=== PATIENT | male | born 1950 | race Caucasian/White ===

== ENCOUNTER → 2016-06-27 | Outpatient (CLI) | payer MEDICARE, OTHER | LOC: SL 20:30 | PROVIDERS: ATTEND Family Medicine | DX: G47.30 Sleep apnea, unspecified (principal); R53.83 Other fatigue; G25.81 Restless legs syndrome; R06.83 Snoring; I10 Essential (primary) hypertension; E66.01 Morbid (severe) obesity due to excess calories ==

== ENCOUNTER → 2016-07-12 | Outpatient (CLI) | payer OTHER ==
--- NOTE | 2016-07-12 12:38 | CT ---
EXAM DESCRIPTION: Chest CT. CLINICAL HISTORY: Patchy infiltrates seen on prior study. COMPARISON: June 01, 2016. TECHNIQUE: A volumetric CT with IV contrast was acquired and displayed in multiplanar reconstructions. FINDINGS: Mediastinum: Minimal Coronary artery disease noted. Visualized lymph nodes are within normal limits for CT size criteria. No acute aortic abnormality, pericardial effusion, or mediastinal mass. Upper Abdomen: Mild fatty infiltration of the liver. Cholelithiasis. The upper abdominal contents are otherwise unremarkable. Lungs: Pleural surfaces are unremarkable. There is no suspicious pulmonary nodularity, consolidation, or interstitial thickening. Bones: No suspicious bone lesion is seen. IMPRESSION: The lungs are clear on today's study. Resolution of the inflammatory changes seen within the left lung base when compared to prior. Fatty infiltration the liver. Cholelithiasis noted. Electronically signed by: Raphael Eldridge MD 07/12/2016 12:36
== END ==
LOC: CT 10:06
PROVIDERS: ATTEND Internal Medicine Critical Care Medicine
DX: J70.9 Respiratory conditions due to unspecified external agent (principal); K76.0 Fatty (change of) liver, not elsewhere classified; K80.20 Calculus of gallbladder without cholecystitis without obstruction

== ENCOUNTER → 2017-01-03 | Outpatient (CLI) | payer MEDICARE | END | disposition home or self-care (01) | LOC: LAB.O 10:35 | PROVIDERS: ATTEND Surgery Plastic and Reconstructive Surgery | DX: Z01.810 Encounter for preprocedural cardiovascular examination (principal); Z01.811 Encounter for preprocedural respiratory examination; Z01.812 Encounter for preprocedural laboratory examination ==

== ENCOUNTER → 2017-01-08 | Outpatient (CLI) | payer MEDICARE | END | disposition home or self-care (01) | LOC: GMAB 10:45 | PROVIDERS: ATTEND Family Medicine | DX: Z12.5 Encounter for screening for malignant neoplasm of prostate (principal); E11.9 Type 2 diabetes mellitus without complications | CPT/HCPCS: 84443; G0103 ==

== ENCOUNTER → 2017-02-13 | Outpatient (CLI) | payer OTHER | LOC: GMAB 16:43 | PROVIDERS: ATTEND Family Medicine | DX: L72.3 Sebaceous cyst (principal) ==

== ENCOUNTER 2017-04-25 06:04 | Day surgery (SDC) | payer OTHER ==
--- NOTE | 2017-04-24 09:17 | RAD ---
EXAM DESCRIPTION: Chest,2 Views CLINICAL HISTORY: 66 years, Male, SURG 04/25/17 COMPARISON: June 05, 2016 FINDINGS: Adequate inspiration. Chronic mild elevation right hemidiaphragm. Scattered fibrotic change. Cardiac silhouette normal. Mild apical pleural thickening. IMPRESSION: Stable mild chronic lung change with normal heart size Electronically signed by: Jose M Figueroa MD 04/24/2017 9:16 AM RECREATION PROGRAM SPECIALIST
[2017-04-25] MEDS ORDERED: NEOSTIGMINE METHYLSULFATE 1 MG/ML ML IV ONE (07:00)
[2017-04-25] MEDS ORDERED: ePHEDrine SULF 50 MG/ML ONE (07:00)
[2017-04-25] MEDS ORDERED: ATROPINE SULFATE 0.4 MG/ML 1ML VIAL ONE (07:00)
[2017-04-25] MEDS ORDERED: SODIUM CHLORIDE 0.9% 50 ML VIAL ONE (07:00)
[2017-04-25] MEDS ORDERED: PROPOFOL 200 MG/20 ML VIAL IV ONE (07:00)
[2017-04-25] MEDS ORDERED: fentaNYL CITRATE INJ 50 MCG/ML AMP ONE (11:17)
[2017-04-25] MEDS ORDERED: ROCURONIUM BROMIDE 10 MG/ML VIAL ONE (11:17)
[2017-04-25] MEDS ORDERED: LIDOCAINE 2 % GEL 5 ML TUBE TOP ONE (11:18)
[2017-04-25] MEDS ORDERED: SODIUM CHL 0.9% 100ML MINI-BAG 100 ML IVPB ONE (12:10)
[2017-04-25] MEDS ORDERED: LACTATED RINGERS 1,000 ML ONE (12:11)
[2017-04-25] MEDS ORDERED: ceFAZolin SODIUM 1 GM VIAL ONE (12:11)
[2017-04-25] MEDS ORDERED: MIDAZOLAM INJ 2 MG/2 ML VIAL ONE (12:39)
[2017-04-25] MEDS ORDERED: LIDOCAINE 1% 50 ML VIAL INJ ONE (12:41)
--- NOTE | 2017-04-25 14:33 | OP ---
DATE OF PROCEDURE: 04/25/17 PREOPERATIVE DIAGNOSIS: 1. Tender subcutaneous mass, upper back. 2. Inclusion cyst of the back status post incision and drainage. POSTOPERATIVE DIAGNOSIS: 1. Tender subcutaneous mass, upper back. 2. Inclusion cyst of the back status post incision and drainage. PROCEDURE: 1. Excision of subcutaneous mass, back 2. Excision of inclusion cyst of the back. SURGEON: Helder Pearson MD. CONTRACT TECHNICAL WRITER: None. ANESTHESIA: General endotracheal anesthesia and local infiltration of plain lidocaine 1%. INDICATION: The patient is a 66-year-old male who is status post incision and drainage for an abscessed inclusion cyst on the upper back. Just superior to this is a subcutaneous mass that has also been tender associated with the treatment of the inclusion cyst. He was brought to the Surgical Suite today for excision of both after the risks, benefits and alternatives to the procedure were discussed and accepted. FINDINGS: The cyst was excised intact. The mass superior to the cyst was greater than 4 cm and 1 diameter. It was somewhat adherent to the fascia deeply. No other pathology was identified. PROCEDURE: After general endotracheal anesthesia was obtained in supine position, the patient was flipped to the prone position and positioned properly. At this point, he was prepped and draped in the usual sterile manner. A surgical time-out was taken. He had been given IV Ancef. An elliptical incision was fashioned around the inclusion cyst, first with a marking pen and then with infiltration of anesthesia. The skin was incised with a knife and dissection was carried down through the skin into the subcutaneous tissue and the lesion was excised, all using electrocautery. When this was done, the specimen was sent for pathological evaluation. At this point , again the identified subcutaneous mass was superior to this, so the incision was lengthened approximately 2 cm superiorly and then dissection was carried down through the skin, Bertin's fascia and into the deep subcutaneous tissue. The fatty tissue consistent with a lipoma was dissected free using blunt dissection and electrocautery. When it was completely excised, hemostasis was obtained with electrocautery. The wound was irrigated copiously with saline. At this point, Bertin's fascia was reapproximated with interrupted 3-0 Chromic sutures and the skin was approximated with interrupted 3-0 Nylon vertical mattress sutures. Sterile pressure dressing was applied. The patient was then awakened and take back to the Recovery Room in stable condition. Estimated blood loss was less than 50 mL. All sponge, needle and instrument counts were correct. #[id number] [facility]
[2017-04-25 14:52] VITALS: BP 140/69; TEMP 97.6; O2SAT 100
== END 2017-04-25 15:15 | disposition home or self-care (01) ==
LOC: AMB 06:04
PROVIDERS: ATTEND Surgery
DX: D17.1 Benign lipomatous neoplasm of skin and subcutaneous tissue of trunk (principal); L72.0 Epidermal cyst; I10 Essential (primary) hypertension; E11.9 Type 2 diabetes mellitus without complications; E66.9 Obesity, unspecified; Z85.828 Personal history of other malignant neoplasm of skin; J44.9 Chronic obstructive pulmonary disease, unspecified; Z79.4 Long term (current) use of insulin; Z79.899 Other long term (current) drug therapy
CPT/HCPCS: 00300; 11402; 21931; 36415; 36416; 71020; 80053; 81001; 82948; 85025; 88304; 93005; A4216; J0690; J2250; J2710; J3010; J3490; J7050; J7120

== ENCOUNTER → 2017-12-03 | Outpatient (CLI) | payer OTHER, MEDICARE | LOC: LAB.O 15:50 | PROVIDERS: ATTEND Surgery | DX: L02.212 Cutaneous abscess of back [any part, except buttock and flank] (principal) ==

== ENCOUNTER → 2018-02-20 | Outpatient (CLI) | payer OTHER | LOC: GMAE 14:05 | PROVIDERS: ATTEND Family Medicine | DX: I10 Essential (primary) hypertension (principal); Z12.5 Encounter for screening for malignant neoplasm of prostate | CPT/HCPCS: 84443; G0103 ==

== ENCOUNTER → 2019-03-03 | Outpatient (CLI) | payer MEDICARE, OTHER ==
--- NOTE | 2019-03-03 16:29 | RAD ---
EXAM DESCRIPTION: Knee,Right Complete CLINICAL HISTORY: PAIN IN RIGHT KNEE COMPARISON: None FINDINGS: 3 views of the right knee. The joint spaces are maintained. No significant subchondral sclerosis or cystlike formation is demonstrated within the knee. No acute fractures. Usual enthesophyte formation seen at the patella. No periosteal reaction. No large joint effusion. IMPRESSION: No acute osseous pathology. No advanced osteoarthritis. MRI may be of benefit. Electronically signed by: Juan Ayon MD 03/03/2019 4:28 PM CDT
--- NOTE | 2019-03-03 16:31 | RAD ---
EXAM DESCRIPTION: Pelvis, 2 radiographs CLINICAL HISTORY: Right hip pain FINDINGS/ IMPRESSION: Mild osteoarthritis bilateral hips. No fracture. 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
== END ==
LOC: RAD 07:48
PROVIDERS: ATTEND Orthopaedic Surgery
DX: M16.0 Bilateral primary osteoarthritis of hip (principal); M47.898 Other spondylosis, sacral and sacrococcygeal region; M77.9 Enthesopathy, unspecified; M25.561 Pain in right knee

== ENCOUNTER 2019-06-14 20:16 | Emergency (ER) | payer OTHER ==
[2019-06-14 20:31] VITALS: TEMP 98.9
--- NOTE | 2019-06-14 20:34 | ED.PDOC ---
History of Present Illness - General Chief Complaint: Abdominal Pain Time Seen by Provider: 06/14/19 20:25 Information Source: patient, RN notes reviewed, Vital Signs reviewed, family Exam Limitations: no limitations Additional Information: this is a 69-year-old gentleman who presents to the emergency department with history of hypertension as well as diabetes. He states that at 7 PM he had a sneezing fit and hurt his lower abdomen. He states that he has had previous ventral hernia repair 2 the last being about 13 years ago. Said he has had some soreness of his abdomen secondary to having a nonproductive cough for the last week and a half. He was seen by his PCP and thought to have a head cold only. He denies having any fever or chills recently. He is not taking any pain medication since the pain began. He did place an abdominal binder to splint the pain. He denies other abdominal surgeries. Patient denies any nausea or vomiting. No chest pain reported at present. Review of Systems - Review of Systems Constitutional: States: no symptoms reported EENTM: States: no symptoms reported Respiratory: States: cough. Denies: short of breath, stridor, wheezing Cardiology: States: edema - lower extremities chronically, told to wear radha hose Gastrointestinal/Abdominal: States: abdominal pain. Denies: constipation, diarrhea, nausea, vomiting Genitourinary: States: no symptoms reported Musculoskeletal: States: no symptoms reported Skin: States: no symptoms reported Neurological: States: no symptoms reported Hematologic/Lymphatic: States: no symptoms reported All other Systems: Reviewed and Negative Past Medical History (General) - Patient Medical History Hx Seizures: No Hx Stroke: No Hx Asthma: Yes Hx of COPD: No Hx Cardiac Disorders: No Hx Congestive Heart Failure: No Hx Pacemaker: No Hx Hypertension: Yes Hx Diabetes: Yes - FSBS 75 Hx MRSA: No - Vaccination History Hx Tetanus, Diphtheria Vaccination: No Hx Influenza Vaccination: No Hx Pneumococcal Vaccination: No - Social History Hx Tobacco Use: No Hx Alcohol Use: No Hx Substance Use: No Hx Substance Use Treatment: No Hx Depression: No Hx Physical Abuse: No Hx Emotional Abuse: No Family Medical History - Family History Mother Living Status: Hx Family Asthma: Yes Hx Family Congestive Heart Failure: Yes Hx Family Hypertension: Yes Hx Family Stroke: No Hx Cardiac Disease: No Hx Family Diabetes: Yes Hx Family Cancer: Yes Physical Exam - Physical Exam General Appearance: Alert, Obvious distress, Other - pain with movement and valsalva Eyes, Ears, Nose, Throat Exam: PERRL/EOMI, normal ENT inspection, TMs normal Neck: non-tender, full range of motion, supple, normal inspection Respiratory: chest non-tender, no respiratory distress, no accessory muscle use, rhonchi - right lower lobe mostly, Cardiovascular/Chest: normal peripheral pulses, regular rate, rhythm, other - 1 + edema bilaterally and symmetrically of the LE's. Peripheral Pulses: No deficit Gastrointestinal/Abdominal: normal bowel sounds, soft, no organomegaly, no pulsatile mass, tenderness - left of midline, superior to umbiliacus, no herniation, no skin changes, no ecchymosis Rectal Exam: deferred Back Exam: normal inspection, no CVA tenderness, no vertebral tenderness Extremity: normal range of motion, non-tender, normal inspection, no pedal edema, no calf tenderness Neurologic: manager loan II-XII nml as tested, no motor/sensory deficits, alert, normal mood/affect, oriented x 3 Skin Exam: normal color, warm/dry Lymphatic: no adenopathy Progress - Progress Progress: 06/14/19 20:48 MDM: Muscular spasm, muscular strain,rectus strain, AAA, gastritis, pneumonia, rhonchi. Patient will have IV placed and we will give pain medications as necessary. We will go ahead and obtain some laboratory studies as well as a chest x-ray and abdominal CT 06/14/19 22:06 Pt reports pain is improved. 4/10 now. Declines any more pain meds at present. - Results/Orders Results/Orders: Laboratory Tests 06/14/19 06/14/19 20:46 20:46 WBC 9.9 RBC 4.37 L Hgb 13.4 L Hct 39.1 L MCV 89.5 MCH 30.7 MCHC 34.3 RDW 14.2 Plt Count 278 MPV 8.5 Absolute Neuts (auto) 6.00 Absolute Lymphs (auto) 2.80 Absolute Monos (auto) 0.80 Absolute Eos (auto) 0.30 Absolute Basos (auto) 0.10 Neutrophils % 60.3 Lymphocytes % 28.0 Monocytes % 7.8 Eosinophils % 3.1 Basophils % 0.8 Sodium 138 Potassium 3.6 Chloride 101 Carbon Dioxide 27 Anion Gap 13.6 BUN 24 H Creatinine 0.85 BUN/Creatinine Ratio 28.2 H Random Glucose 223 H Serum Osmolality 286.6 Calcium 8.8 Total Bilirubin 0.9 AST 42 ALT 25 Alkaline Phosphatase 75 Serum Total Protein 7.4 Albumin 3.9 Globulin 3.5 Albumin/Globulin Ratio 1.1 COMPARISON: CT chest and upper abdomen from 07/12/2016 FINDINGS: Abdomen: There has been development of clustered tree-in-bud nodular opacities in the right lung base likely representing a mild infectious bronchiolitis with aspiration also possible. The lung bases are otherwise clear. Gallstone is again noted in the gallbladder. There are no renal or ureteral stones and no hydronephrosis. Very mild bilateral gynecomastia is noted. Solid abdominal organs are otherwise unremarkable. There is fat stranding in the jejunal small bowel mesentery consistent with sclerosing mesenteritis. There is no abdominal adenopathy. There is no free fluid or free air within the abdomen. The abdominal portion of the GI tract is unremarkable. Pelvis: There is diverticulosis. The prostate is enlarg ed, please correlate with physical exam and PSA levels. There is no free fluid in the pelvis. The pelvic portion of the GI tract including the appendix is otherwise unremarkable. There is no pelvic adenopathy. Degenerative changes are noted in the spine. IMPRESSION: 1. Cholelithiasis. 2. Findings consistent with a likely mild infectious bronchiolitis in the right lung base. 3. Diverticulosis. 4. Findings consistent with sclerosing mesenteritis. 5. Prostate enlargement. Electronically signed by: Herbie Jane 06/14/2019 9:53 PM GATE MANAGER IMPRESSION: Minimal patchy right lower lung opacity corresponds to a known area of likely infectious bronchiolitis in the right lung base on CT. Electronically signed by: Herbie Jane 06/14/2019 9:54 PM GATE MANAGER Departure - Departure Clinical Impression: Strain of rectus abdominis muscle, Sclerosing mesenteritis, Cholelithiasis, Acute bronchitis Time of Disposition: 22:59 Disposition: Discharge to Home or Self Care Condition: Good Departure Forms: ED Discharge - Pt. Copy, Patient Portal Self Enrollment Instructions: DI for Abdominal Pain-Adult Referrals: Vamshi Roche MD [Family Provider] - 1-2 Weeks Prescriptions: Acetaminophen W/ Codeine [Tylenol W/ CODEINE #3] 1 ea PO Q6HRS #20 Benzonatate Perles [Tessalon Perles] 100 mg PO Q8HR #30 cap Azithromycin [Zithromax Z-Fei] 250 mg PO DAILY #6 tab Home Medications: Ambulatory Orders Folic [id number]-Yduhqrvq [Folbic 2.5-25-2 mg] 1 tab PO DAILY 06/01/16 Insulin Glargine [Toujeo Solostar] 300 unit SC BEDTIME 04/24/17 Acetaminophen W/ Codeine [Tylenol W/ CODEINE #3] 1 ea PO Q6HRS #20 06/14/19 Atorvastatin Calcium 40 mg PO DAILY 06/14/19 Azithromycin [Zithromax Z-Fei] 250 mg PO DAILY #6 tab 06/14/19 Benzonatate Perles [Tessalon Perles] 100 mg PO Q8HR #30 cap 06/14/19 Losartan Potassium & Hydrochlo [Losartan Potassium/Hydroc 100-25 mg] 1 tab PO DAILY 06/14/19 Additional Instructions: Follow up with Dr. Pearson. Take medications as prescribed. Complete all antibiotics. Take pain medication as needed. Return to the ER if necessary.
[2019-06-14] MEDS ORDERED: MORPHINE SULFATE INJ 10 MG/ML VIAL IV ONE ×2 (20:39→22:12)
[2019-06-14] MEDS ORDERED: ONDANSETRON INJ 4 MG/2 ML VIAL IV ONE (20:39)
[2019-06-14] MEDS ORDERED: SODIUM CHLORIDE 0.9% 1000ML 1,000 ML IVS PRN (20:40)
[2019-06-14 21:03] VITALS: O2SAT 94
--- NOTE | 2019-06-14 21:54 | CT ---
CT abdomen and pelvis with and without contrast on 06/14/2019 CLINICAL INDICATION: Generalized abdominal pain TECHNIQUE: Multiple axial images are obtained throughout the abdomen and pelvis both prior to and following the administration of IV contrast. This exam was performed according to our departmental dose-optimization program, which includes automated exposure control, adjustment of the mA and/or kV according to patient size and/or use of iterative reconstruction technique. Total DLP is 2676.38 mGy*cm. COMPARISON: CT chest and upper abdomen from 07/12/2016 FINDINGS: Abdomen: There has been development of clustered tree-in-bud nodular opacities in the right lung base likely representing a mild infectious bronchiolitis with aspiration also possible. The lung bases are otherwise clear. Gallstone is again noted in the gallbladder. There are no renal or ureteral stones and no hydronephrosis. Very mild bilateral gynecomastia is noted. Solid abdominal organs are otherwise unremarkable. There is fat stranding in the jejunal small bowel mesentery consistent with sclerosing mesenteritis. There is no abdominal adenopathy. There is no free fluid or free air within the abdomen. The abdominal portion of the GI tract is unremarkable. Pelvis: There is diverticulosis. The prostate is enlarged, please correlate with physical exam and PSA levels. There is no free fluid in the pelvis. The pelvic portion of the GI tract including the appendix is otherwise unremarkable. There is no pelvic adenopathy. Degenerative changes are noted in the spine. IMPRESSION: 1. Cholelithiasis. 2. Findings consistent with a likely mild infectious bronchiolitis in the right lung base. 3. Diverticulosis. 4. Findings consistent with sclerosing mesenteritis. 5. Prostate enlargement. Electronically signed by: Herbie Jane 06/14/2019 9:53 PM RUST
--- NOTE | 2019-06-14 21:55 | RAD ---
Chest 2 view on 06/14/2019 CLINICAL INDICATION: Cough COMPARISON: Chest x-ray from 04/24/[address] abdomen and lower chest on 06/14/2019 FINDINGS: Minimal patchy right lower lung opacity corresponds to a known area on CT of likely mild infectious bronchiolitis. Lungs are otherwise clear. Vascular calcification is noted in the aorta. Cardiac, hilar and mediastinal contours are within normal limits. Pulmonary vascularity is within normal limits. IMPRESSION: Minimal patchy right lower lung opacity corresponds to a known area of likely infectious bronchiolitis in the right lung base on CT. Electronically signed by: Herbie Jane 06/14/2019 9:54 PM PROSTHETICS TECHNICIAN
[2019-06-14 22:00] VITALS: BP 154/76
[2019-06-14] MEDS ORDERED: AZITHROMYCIN 250 MG TAB PO ONE (22:11)
== END 2019-06-14 23:14 | disposition home or self-care (01) ==
LOC: ER 20:16
DX: S39.011A Strain of muscle, fascia and tendon of abdomen, initial encounter (principal); K65.4 Sclerosing mesenteritis; K80.20 Calculus of gallbladder without cholecystitis without obstruction; J20.9 Acute bronchitis, unspecified; I10 Essential (primary) hypertension; E11.9 Type 2 diabetes mellitus without complications; X50.9XXA Other and unspecified overexertion or strenuous movements or postures, initial encounter; Y92.9 Unspecified place or not applicable
CPT/HCPCS: 71046; 74178; 80053; 85025; J2270; J2405; J7030; Q0144

== ENCOUNTER 2020-03-26 22:11 | Inpatient (IN) | payer OTHER ==
--- NOTE | 2020-03-26 22:15 | ED.PDOC ---
History of Present Illness - General Time Seen by Provider: 03/26/20 22:12 Source: patient - History of Present Illness Initial Comments: 69 yo male with PMH of HTN, DM2 who presents with cc of shortness of breath. Patient reports he has been ill for the past 2 weeks. Reports primary symptoms of frequent cough productive for clear sputum and dyspnea. Reports symptoms seem to have worsened in the past 24 hours and further worsened this evening - cough and dyspnea have been worse at night typically. Reports moderate dyspnea at rest which worsens quickly with ambulating just short distances around the home. He additionally reports intermittent fevers over the past 2 weeks. Reports T-max of 102 Fahrenheit at home just prior to arrival. He did take 3 tablets of regular strength Tylenol just prior to arrival with improvement of the fever. Denies any chest pain, abdominal pain, nausea/vomiting/diarrhea, leg swelling, sore throat. He does report moderate generalized headache but denies neck stiffness. Reports body aches. Denies any history of IA or blood clots. Patient does take medications for high blood pressure and diabetes. He states his blood pressure has been periodically elevated higher than normal. His PCP has increased his amlodipine from 5 to 10 mg daily with some improvement. Pt reports he was diagnosed with COVID-19 on 03/16/2020. He was given a Rocephin shot and prescribed a 5-day Z-Fei on 03/16 but states he has not been taking any other prescription antibiotics or steroids since then. He has been taking some ipqd-[id number] Mucinex with little relief. PCP is Dr. Saucedo. Allergies/Adverse Reactions: Allergies NO KNOWN ALLERGY Allergy (Verified 06/14/19 20:30) Home Medications: Ambulatory Orders Folic Yvsm-Lcvwojcxsm-Avwuhuko [Folbic 2.5-25-2 mg] 1 tab PO DAILY 06/01/16 Insulin Glargine [Toujeo Solostar] 300 unit SC BEDTIME 04/24/17 Acetaminophen W/ Codeine [Tylenol W/ CODEINE #3] 1 ea PO Q6HRS #20 06/14/19 Atorvastatin Calcium 40 mg PO DAILY 06/14/19 Azithromycin [Zithromax Z-Fei] 250 mg PO DAILY #6 tab 06/14/19 Benzonatate Perles [Tessalon Perles] 100 mg PO Q8HR #30 cap 06/14/19 Losartan Potassium & Hydrochlo [Losartan Potassium/Hydroc 100-25 mg] 1 tab PO DAILY 06/14/19 Review of Systems - Review of Systems Review of Systems: 03/26/20 22:34 as per HPI All other Systems: Reviewed and Negative Past Medical History (General) - Patient Medical History Hx Seizures: No Hx Stroke: No Hx Dementia: No Hx Asthma: Yes Hx of COPD: No Hx Cardiac Disorders: No Hx Congestive Heart Failure: No Hx Pacemaker: No Hx Hypertension: Yes Hx Thyroid Disease: No Hx Diabetes: Yes - FSBS 76 Hx Gastroesophageal Reflux: No Hx Renal Disease: No Hx Cancer: No Hx of HIV: No Hx Hepatitis C: No Hx MRSA: No - Vaccination History Hx Tetanus, Diphtheria Vaccination: No Hx Influenza Vaccination: No Hx Pneumococcal Vaccination: No - Social History Hx Tobacco Use: No Hx Alcohol Use: No Hx Substance Use: No Hx Substance Use Treatment: No Hx Depression: No Hx Physical Abuse: No Hx Emotional Abuse: No Family Medical History - Family History Mother Living Status: Hx Family Asthma: Yes Hx Family Congestive Heart Failure: Yes Hx Family Hypertension: Yes Hx Family Stroke: No Hx Cardiac Disease: No Hx Family Diabetes: Yes Hx Family Cancer: Yes Physical Exam - Physical Exam General Appearance: Alert, Anxious, Obese, Restless Eye Exam: bilateral normal Ears, Nose, Throat: hearing grossly normal, normal ENT inspection, normal pharynx Neck: non-tender, full range of motion, supple, normal inspection Respiratory: chest non-tender, accessory muscle use, rales - Bibasilar crackles noted without rhonchi or wheezing, good air movement throughout., other - Patient speaking in short sentences, respiratory rate 30, mild accessory muscle use. Cardiovascular/Chest: normal peripheral pulses, no edema, no gallop, no JVD, no murmur, tachycardia Peripheral Pulses: radial,right: 2+, radial,left: 2+ Gastrointestinal/Abdominal: non tender, soft, no organomegaly Back Exam: normal inspection, no CVA tenderness, no vertebral tenderness Extremity: normal range of motion, non-tender, normal inspection, no pedal edema, no calf tenderness, normal capillary refill Neurologic: umbrella tipper II-XII nml as tested, no motor/sensory deficits, alert, normal mood/affect, oriented x 3 Skin Exam: normal color, warm/dry Progress - Progress Progress: 03/26/20 22:35 Acute respiratory distress -Suspect due to COVID-19 disease. Consider also pneumonia, ACS, CHF, COPD, PE, other viral etiologies, flu, strep, other -Obtain stat sepsis and cardiac work-up. Obtain COVID-19 ED panel. Obtain swabs for flu and strep -Patient with borderline hypoxia in the ED90 to 94% on room air, tachypnea and tachycardia present. Afebrile upon arrival. Patient does have bibasilar crackles but otherwise is moving air well without wheezing. -Place nasal cannula supplemental oxygen, will give trial of albuterol nebs in the ED 03/27/20 00:25 -Patient reports moderate improvement in dyspnea following the albuterol nebs. His tachypnea and accessory muscle use is much improved. Hemodynamically remains stable. -Labs reveal WBC 9,800 with 64% segs and 24% lymphs, no bands, lactate 1.6. CRP 15.8, LDH 215, D-dimer 337, trop 0.03, glucose 184, K 3.2 (replenished 40 mEq in ED). Strep testing positive. RP2 remains pending. -Chest x-ray is concerning for bilateral groundglass opacities, worse in the left lower lobe which I am concerned may be developing infiltrate/pneumonia. -Discussed findings with the patient and advised hospital admission for COVID-19 pneumonia, community-acquired pneumonia, acute respiratory distress. Patient is in agreement. Begin treatment in the ED with Rocephin 1 g IV, azithromycin 500 mg IV, Decadron 6 mg IV, Lovenox 40 mg subcu. We will give another dose of duo nebs as well. Blood cultures drawn. -Discussed the patient with Belinda Sosa who accepts to her service. 03/27/20 01:31 -RP2 positive for COVID-19, negative for all others Cheko Dwyer MD Billing #[id number] 03/26/20 22:13 IV Care:Saline Lock per [employer] STAT Isolation:Airborne ONCE 03/26/20 22:14 UA [URINALYSIS] Stat 03/26/20 22:15 EKG STAT Oxygen STAT Pulse Ox, Continuous Monitoring STAT 03/26/20 23:09 RESPIRATORY PANEL 2 Stat 03/27/20 00:21 cefTRIAXone SODIUM [Rocephin] 1 gm Sodium Chl 0.9% 50Ml Min-Bag+ [NS 50ml MINI-BAG+] 50 ml IVPB ONCE 03/27/20 00:22 Azithromycin IV [Zithromax IV] 500 mg Sodium Chloride 0.9% 250Ml [NS 250ml] 250 ml IVPB ONCE 03/27/20 00:25 BLOOD CULTURE Stat 03/27/20 22:15 Oxygen STAT Pulse Ox, Continuous Monitoring STAT 03/28/20 22:15 Pulse Ox, Continuous Monitoring STAT Laboratory Results - last 24 hr 03/26/20 03/26/20 03/26/20 23:09 23:09 23:09 WBC 9.8 RBC 3.79 L Hgb 10.5 L Hct 31.4 L MCV 82.9 MCH 27.6 MCHC 33.3 RDW 14.9 H Plt Count 266 MPV 8.6 Absolute Neuts (auto) 6.20 Absolute Lymphs (auto) 2.40 Absolute Monos (auto) 1.10 H Absolute Eos (auto) 0.10 Absolute Basos (auto) 0.00 Neutrophils % 63.5 Lymphocytes % 24.4 Monocytes % 10.9 H Eosinophils % 1.0 Basophils % 0.2 PTT (SP) 26.9 D-Dimer, Quantitative 337.0 Sodium 136 Potassium 3.2 L Chloride 102 Carbon Dioxide 22 Anion Gap 15.2 BUN 23 H Creatinine 1.06 BUN/Creatinine Ratio 21.7 H Random Glucose 184 H Serum Osmolality 280.4 Lactic Acid Calcium 8.0 L Magnesium 2.0 Total Bilirubin 1.1 H AST 48 H ALT 34 Alkaline Phosphatase 67 LD Total 215 H Creatine Kinase 84 Troponin I C-Reactive Protein 15.8 H* B-Natriuretic Peptide 43.0 Serum Total Protein 7.2 Albumin 3.3 Globulin 3.9 H Albumin/Globulin Ratio 0.8 L Group A Strep Rapid 03/26/20 03/26/20 03/26/20 23:09 23:09 23:09 WBC RBC Hgb Hct MCV MCH MCHC RDW Plt Count MPV Absolute Neuts (auto) Absolute Lymphs (auto) Absolute Monos (auto) Absolute Eos (auto) Absolute Basos (auto) Neutrophils % Lymphocytes % Monocytes % Eosinophils % Basophils % PTT (SP) D-Dimer, Quantitative Sodium Potassium Chloride Carbon Dioxide Anion Gap BUN Creatinine BUN/Creatinine Ratio Random Glucose Serum Osmolality Lactic Acid 1.6 Calcium Magnesium Total Bilirubin AST ALT Alkaline Phosphatase LD Total Creatine Kinase Troponin I 0.03 C-Reactive Protein B-Natriuretic Peptide Serum Total Protein Albumin Globulin Albumin/Globulin Ratio Group A Strep Rapid Positive H - EKG/XRAY/CT EKG: Sinus, Tachy - Heart rate 100, no ST elevations or Q waves present, axis normal, intervals normal, compared to 04/25/2017 EKG tachycardia appears new but otherwise unchanged XRAY: chest - Bilateral groundglass opacities noted in the lower lung mcmanus, left greater than right. Suspicious for COVID-19 pneumonia. He also developed consolidating infiltrate in the left lower lung field per my read Departure - Departure Clinical Impression: Pneumonia due to COVID-19 virus, Respiratory distress, Strep pharyngitis Community acquired pneumonia Qualifiers: Laterality: unspecified laterality Qualified Code(s): J18.9 - Pneumonia, unspecified organism Time of Disposition: 00:30 Disposition: Admit Patient Condition: Fair Diet: diabetic diet Referrals: TAVIA SAUCEDO MD [Primary Care Provider] - 1-2 Weeks Home Medications: Ambulatory Orders Folic Hmtc-Xydmcqpmeg-Snagodmj [Folbic 2.5-25-2 mg] 1 tab PO DAILY 06/01/16 Insulin Glargine [Toujeo Solostar] 300 unit SC BEDTIME 04/24/17 Acetaminophen W/ Codeine [Tylenol W/ CODEINE #3] 1 ea PO Q6HRS #20 06/14/19 Atorvastatin Calcium 40 mg PO DAILY 06/14/19 Azithromycin [Zithromax Z-Fei] 250 mg PO DAILY #6 tab 06/14/19 Benzonatate Perles [Tessalon Perles] 100 mg PO Q8HR #30 cap 06/14/19 Losartan Potassium & Hydrochlo [Losartan Potassium/Hydroc 100-25 mg] 1 tab PO D AILY 06/14/19 Critical Care Note - Critical Care Note Total Time (mins): 30 Comments: Critical Care Time: Upon my evaluation, this patient had a high probability of life-threatening deterioration due to COVID-19 pneumonia, acute respiratory distress, which required my direct attention, intervention, and management. I have provided 30 minutes of critical care time exclusive of separately billable procedures. My time included: direct patient care, review of labs and radiology, obtaining history from and counseling the patient, discussion with consultants and other medical personnel, documentation, and monitoring for potential decompensation. Decision To Admit - Decistion To Admit Decision to Admit Reason: Admit from ER Decision to Admit Date: 03/27/20 Decision to Admit Time: 00:30
[2020-03-26] MEDS ORDERED: ALBUTEROL SULFATE 2.5 MG/3 ML VIAL NEB ONE (22:29)
--- NOTE | 2020-03-26 22:53 | RAD ---
EXAM DESCRIPTION: Chest,1 View 03/26/2020 10:50 PM CDT CLINICAL HISTORY: 69 years, Male, COVID-19+, dyspnea COMPARISON: 06/14/2019 FINDINGS: Single view of the chest was obtained portable. Prior films were compared. The heart is not enlarged. There is minimal intimal aortic arch calcification and tortuosity. The cardiomediastinal silhouette demonstrate to be unremarkable. There is a small focal area of airspace opacity within the lateral left lower lung zone as well as minimal linear densities within the medial right lung base, possibility of multilobar pneumonia and/or early changes of Covid 19 pneumonia could be of consideration. The rest of the soft tissue and bony structures demonstrate to be unremarkable. IMPRESSION: MINIMAL GROUNDGLASS/OPACITY SUBPLEURAL LATERAL LEFT LOWER LUNG AND MEDIAL RIGHT LOWER LUNG ZONES, POSSIBILITY OF MULTILOBAR PNEUMONIA IN/OR COVID 19 PNEUMONIA COULD BE OF CONSIDERATION, CORRELATE WITH LAB VALUES. Electronically signed by: Nilson Carmona MD 03/26/2020 10:52 PM CDT
[2020-03-27] MEDS ORDERED: IPRATROPIUM/ALBUTEROL 3 ML VIAL NEB ONE (00:14)
[2020-03-27] MEDS ORDERED: POTASSIUM CHLORIDE 20 MEQ TAB PO ONE (00:14)
[2020-03-27] MEDS ORDERED: cefTRIAXone SODIUM 1 GM in SODIUM CHL 0.9% 50ML MIN-BAG+ 50 ML IVPB ONE (00:21)
[2020-03-27] MEDS ORDERED: DEXAMETHASONE INJ 4 MG/ML VIAL IV ONE (00:21)
[2020-03-27] MEDS ORDERED: AZITHROMYCIN IV 500 MG in SODIUM CHLORIDE 0.9% 250ML 250 ML IVPB ONE (00:22)
[2020-03-27] MEDS ORDERED: ENOXAPARIN SODIUM 40 MG/0.4 ML SYG SUBCU ONE (00:24)
[2020-03-27] MEDS ORDERED: DEXAMETHASONE INJ 10 MG/ML VIAL ONE (01:12)
--- NOTE | 2020-03-27 01:34 | HP ---
SUPERVISING PHYSICIAN: Joey Cox MD CHIEF COMPLAINT: Upper respiratory and Covid symptoms. HISTORY OF PRESENT ILLNESS: This is a 69 year-old male patient who has a history of hypertension and diabetes mellitus and asthma. He presented to the Emergency Room with shortness of breath. He has been ill for approximately 2 weeks. In the previous 24 hours he had gotten a lot worse. His dyspnea was much worse with exertion and he has had fevers up to 102 as well as over the the last several days. He has also had some issues with his blood pressure and his blood pressure had been elevated and his primary care physician increased his amlodipine from 5 mg daily to 10 mg daily. He was diagnosed with Covid-19 on 03/16/20. His daughter was actually diagnosed the day before but has been having some symptoms since March 12. He has felt poorly during that whole time and got to the point where he came to the Emergency Room last night due to these symptoms. In the Emergency Room, his initial vital signs showed a temperature of 98 with a heart rate of 115, blood pressure 119/71, respiratory rate 24, oxygen saturation 94% on 2 liters nasal cannula. His respiratory rate had dropped to 28 respirations per minute. His lab studies showed a WBC of 9.8 with a hemoglobin of 10.5 and hematocrit 31.4. PTT was 26.9 with a D-dimer of 337. His sodium was 136, potassium 3.2, chloride 102, carbon dioxide 33, BUN 23, creatinine 1.06. Glucose 184, calcium 8, magnesium 2, bilirubin 1.1 with an AST of 48. ALT of 34, alkaline phosphatase 66, LD 215, troponin 0.03 with a C- reactive protein of 15.8, BNP of 43. Group A strep was positive. Blood cultures were drawn, respiratory panel showed he was positive for Covid-19. Chest x-ray showed minimal ground glass opacities, subpleural lateral left lower lung and medial right lower lung zones, possibly a multilobar pneumonia and/or Covid-19 pneumonia could be a consideration. He was given some fluids in the Emergency Room as well as some Lovenox. He was given Decadron IV, started on azithromycin and Rocephin and he was admitted to the hospital in stable condition. PAST MEDICAL HISTORY: 1. Chronic obstructive pulmonary disease. 2. Hyperlipidemia. 3. Hypertension. 4. Obesity. 5. Type 2 diabetes mellitus, no longer on medications. PAST SURGICAL HISTORY: 1. Hernia surgery times 2. 2. Knee surgery times 2. . ALLERGIES: NO KNOWN DRUG ALLERGIES. FAMILY HISTORY: SOCIAL HISTORY: He lives in [place], he is . He denies tobacco, ETOH or illicit drug use. OUTPATIENT MEDICATIONS: Per the EMR and awaiting verification. REVIEW OF SYSTEMS: GENERAL: Positive for fever, fatigue, negative for weight changes. HEENT: Positive for sore throat, negative for vision changes or hearing problems. RESPIRATORY: Positive for coughing, wheezing, shortness of breath CARDIAC: Negative for chest pain, palpitations, tachycardia. GI: Negative for nausea, vomiting, diarrhea or constipation. GENITOURINARY: Negative for hematuria, dysuria, polyuria. SKIN: Negative for lesions or rashes. NEUROLOGICAL: Positive for headaches and weakness, negative for seizures. PHYSICAL EXAMINATION: VITAL SIGNS: Temperature 97.5, heart rate 88, blood pressure 154/88, respiratory rate 22, oxygen saturation 94% on 2 liters nasal cannula. GENERAL: This is a 69 year-old obese male who is lying in his hospital bed. He looks to be in moderate respiratory distress. HEENT: Normocephalic and atraumatic. Pupils are equal and reactive. Oropharynx is clear. NECK: Supple without mass. RESPIRATORY: Diminished at the bases with some scattered rhonchi and a few expiratory wheezes. The patient does have to speak in 2 to 3-word phrases due to his shortness of breath. He is tachypneic and there is some accessory muscle use. CARDIAC: Regular rate and rhythm, at times he is tachycardiac. GI: Abdomen is soft, nondistended, non-tender. Bowel sounds are positive. BACK: Exam deferred. EXTREMITIES: No cyanosis, clubbing, or edema/ NEUROLOGIC: He is awake, alert, and oriented x3. Cranial nerves II through XII are grossly intact. SKIN: [place], warm and dry. FOLLOWUP LABORATORY: WBC of 6,100 with hemoglobin 10.3, hematocrit 30.6. He does have a left shift on his differential. Fibrinogen is 718, D-dimer is 367. Sodium 138, potassium 3.4, BUN 25, creatinine 1.02, calcium 8.2. C-reactive protein 7.1. LD is 154. All other labs and films have been reviewed via the EMR. ASSESSMENT: 1. Covid-19 pneumonitis. 2. Strep pharyngitis. 3. Asthma with acute exacerbation. 4. Hypertension. 5. DANAE. 6. Obesity. 7. Diabetes mellitus type 2, currently on no medication. PLAN: The patient has been admitted to the hospital. He has been started on the Covid and pneumonia guidelines. We will monitor his lab closely over the next few days. I will get a CT of his chest and he will be on azithromycin, Rocephin, Remdesivir, Decadron and Lovenox. He will be on a PPI for ulcer prophylaxis. He will also have a aggressive pulmonary hygiene. His home medications will be restarted as soon as they are verified. I did put him on a sliding scale insulin. We will monitor him closely and follow as needed. #[id number] [facility]
[2020-03-27] MEDS ORDERED: IBUPROFEN 400 MG TAB PO PRN (08:24)
[2020-03-27] MEDS ORDERED: ACETAMINOPHEN 325 MG TAB PO PRN (08:24)
[2020-03-27] MEDS ORDERED: SODIUM CHLORIDE 0.9% (FLUSH) 10 ML SYG IV PRN (08:24)
[2020-03-27] MEDS ORDERED: cefTRIAXone SODIUM 1 GM VIAL ONE (09:58)
[2020-03-27] MEDS ORDERED: SODIUM CHL 0.9% 50ML MIN-BAG+ 50 ML IVPB ONE (09:58)
[2020-03-27] MEDS ORDERED: AZITHROMYCIN IV 500 MG VIAL IVPB ONE (09:58)
[2020-03-27] MEDS ORDERED: SODIUM CHL 0.9% 250ML (AVIVA) 250 ML IVPB ONE (09:59)
[2020-03-27] MEDS ORDERED: POTASSIUM CHLORIDE 20 MEQ TAB ONE (10:00)
[2020-03-27] MEDS ORDERED: SENNA/DOCUSATE TAB 1 EA TAB PO ONE (10:01)
[2020-03-27] MEDS: DEXAMETHASONE INJ 10 MG/ML VIAL IV SCH (10:05)
[2020-03-27] MEDS: BIFIDOBACTERIUM INFANTIS 4 MG CAP PO SCH ×2 (10:05→20:19)
[2020-03-27] MEDS: guaiFENesin ER TAB 600 MG TAB PO SCH ×2 (10:06→20:20)
[2020-03-27] MEDS: IV SET AND CAP CHANGE INJ INJ SCH (10:06)
[2020-03-27] MEDS: SODIUM CHLORIDE 0.9% (FLUSH) 10 ML SYG IV SCH ×2 (10:07→20:20)
[2020-03-27] MEDS: cefTRIAXone SODIUM 1 GM in SODIUM CHL 0.9% 50ML MIN-BAG+ 50 ML IVPB SCH (10:07)
[2020-03-27] MEDS: AZITHROMYCIN IV 500 MG in SODIUM CHLORIDE 0.9% 250ML 250 ML IVPB SCH (10:08)
[2020-03-27] MEDS: ALBUTEROL INHALER 64 PUFF/8GM INH SCH ×2 (11:58→17:00)
[2020-03-27] MEDS: REMDESIVIR 200 MG in SODIUM CHLORIDE 0.9% 250ML 250 ML IVPB SCH (12:26)
[2020-03-27] MEDS ORDERED: GLUCAGON INJ 1 MG VIAL SUBCU PRN (15:41)
[2020-03-27] MEDS ORDERED: DEXTROSE 50% 25 GM/50 ML SYG IV PRN (15:41)
[2020-03-27] MEDS ORDERED: INSULIN 70/30 (HUMAN) 100 UNITS/ML PEN SUBCU ONE (16:55)
[2020-03-27] MEDS: INSULIN LISPRO 100 UNITS/ML PEN SUBCU SCH ×2 (17:58→20:40)
[2020-03-27] MEDS: ENOXAPARIN SODIUM 40 MG/0.4 ML SYG SUBCU SCH (20:19)
[2020-03-27] MEDS: ASPIRIN (ENTERIC COATED) 81 MG TAB PO SCH (20:20)
[2020-03-28] MEDS: ALBUTEROL INHALER 64 PUFF/8GM INH SCH ×5 (01:56→20:30)
[2020-03-28] MEDS: PANTOPRAZOLE SODIUM IV 40 MG VIAL IV SCH (05:34)
[2020-03-28] MEDS ORDERED: AZITHROMYCIN IV 500 MG VIAL IVPB ONE ×2 (07:30→09:39)
[2020-03-28] MEDS ORDERED: cefTRIAXone SODIUM 1 GM VIAL ONE (07:30)
[2020-03-28] MEDS ORDERED: BIFIDOBACTERIUM INFANTIS 4 MG CAP ONE ×2 (07:30→20:02)
[2020-03-28] MEDS ORDERED: DEXAMETHASONE INJ 10 MG/ML VIAL ONE (07:30)
[2020-03-28] MEDS ORDERED: guaiFENesin ER TAB 600 MG TAB ONE ×2 (07:30→20:02)
[2020-03-28] MEDS ORDERED: SODIUM CHLORIDE 0.9% 250ML 250 ML ONE (07:31)
[2020-03-28] MEDS ORDERED: SODIUM CHL 0.9% 50ML MIN-BAG+ 50 ML IVPB ONE (07:31)
[2020-03-28] MEDS ORDERED: ATORVASTATIN 20 MG TAB PO ONE (07:31)
--- NOTE | 2020-03-28 10:16 | CT ---
EXAM: Chest w/o Contrast HISTORY: covid COMPARISON: 03/26/2020 TECHNIQUE: Contiguous axial images of the chest were obtained from the thoracic inlet to the upper abdomen without intravenous contrast followed by multiplanar reformats. This exam was performed according to our departmental dose-optimization program, which includes automated exposure control, adjustment of the mA and/or kV according to patient size and/or use of iterative reconstruction technique. FINDINGS: Bilateral peripheral peripheral lung consolidations, with interspersed areas of nodular groundglass opacity and linear atelectatic banding. No pneumothorax or pleural effusion. No pneumomediastinum. Heart size normal. No pericardial effusion. No mediastinal adenopathy. The central airways are patent. Great vessels are normal. Limited visualization of upper abdominal contents is unremarkable for an acute process. No destructive osseous lesion. Cholelithiasis. IMPRESSION: 1. Bilateral lung consolidations and nodular groundglass opacities, consistent with multifocal infection. Pattern is typical of COVID. 2. No complicating features such as pneumothorax or pneumomediastinum. 3. Cholelithiasis. Electronically signed by: Alexx Fountain MD 03/28/2020 10:14 AM CDT
[2020-03-28] MEDS: amLODIPine BESYLATE 5 MG TAB PO SCH (10:23)
[2020-03-28] MEDS: guaiFENesin ER TAB 600 MG TAB PO SCH ×2 (10:23→21:58)
[2020-03-28] MEDS: BIFIDOBACTERIUM INFANTIS 4 MG CAP PO SCH ×2 (10:24→21:58)
[2020-03-28] MEDS: NON-FORMULARY MEDICATION 1 EA MIS (Atorvastatin Calcium [Atorvastatin Calcium] 40 MG) PO SCH (10:24)
[2020-03-28] MEDS: DEXAMETHASONE INJ 10 MG/ML VIAL IV SCH (10:25)
[2020-03-28] MEDS: cefTRIAXone SODIUM 1 GM in SODIUM CHL 0.9% 50ML MIN-BAG+ 50 ML IVPB SCH (10:25)
[2020-03-28] MEDS: INSULIN LISPRO 100 UNITS/ML PEN SUBCU SCH ×4 (10:41→22:01)
[2020-03-28] MEDS: REMDESIVIR 200 MG in SODIUM CHLORIDE 0.9% 250ML 250 ML IVPB SCH (10:42)
[2020-03-28] MEDS: SODIUM CHLORIDE 0.9% (FLUSH) 10 ML SYG IV SCH ×2 (10:42→21:59)
[2020-03-28] MEDS: AZITHROMYCIN IV 500 MG in SODIUM CHLORIDE 0.9% 250ML 250 ML IVPB SCH (12:50)
[2020-03-28] MEDS: REMDESIVIR 100 MG in SODIUM CHLORIDE 0.9% 250ML 250 ML IVPB SCH (13:06)
[2020-03-28] MEDS: POTASSIUM CHLORIDE 20 MEQ TAB PO SCH ×2 (14:26→21:57)
[2020-03-28] MEDS: HYDROCHLO PO SCH (14:28)
[2020-03-28] MEDS: LOSARTAN POTASSIUM PO SCH (14:28)
[2020-03-28] MEDS ORDERED: ENOXAPARIN SODIUM 40 MG/0.4 ML SYG SUBCU ONE (20:02)
[2020-03-28] MEDS ORDERED: ASPIRIN (ENTERIC COATED) 81 MG TAB PO ONE (20:02)
--- NOTE | 2020-03-28 20:17 | PN ---
SUPERVISING PHYSICIAN: Joey Cox MD DATE: 03/28/20 SUBJECTIVE: The patient is sitting on the side of his bed. He is eating his meal. He is still quite weak and has shortness of breath, but denies chest pain, nausea or vomiting. OBJECTIVE: VITAL SIGNS: Temperature 97.9, heart rate 77, blood pressure 167/70, respiratory rate 20, O2 saturation 96% on 2 liters nasal cannula. RESPIRATORY: Diminished at the bases with scattered rhonchi and a few expiratory wheezes. CARDIAC: Regular rate and rhythm. NEUROLOGIC: Awake, alert and oriented times three. LABORATORY: WBCs 11,600, hemoglobin 9.9, hematocrit 30. He has a left shift on differential. Fibrinogen 618, D-Dimer 160. Sodium 138, potassium 3.2, chloride 103, calcium 8, magnesium 2.3, BUN 33, creatinine 1.01, C-reactive protein 10.7. Chest CT shows 1) Bilateral lung consolidation and ground glass opacities consistent with multifocal infection. Pattern is typical of COVID. 2) No complicating features such as pneumothorax or pneumomediastinum. 3) Cholelithiasis. All other labs and films have been reviewed via the EMR. ASSESSMENT: 1. COVID-19 pneumonitis. 2. Strep pharyngitis. 3. Asthma with acute exacerbation. 4. Hypertension. 5. Obstructive sleep apnea. 6. Obesity. 7. Diabetes mellitus, type 2, currently on no medication. PLAN: We will continue present supportive care. I encouraged good pulmonary hygiene. Clinically, he looks much worse than his lab indicates. I have ordered routine COVID lab and chest x-ray tomorrow. Hopefully, we can wean him off his oxygen and he can be ready for discharge in the next 1 to 2 days. We will continue to monitor the patient closely and follow as needed. #[id number] [facility]
[2020-03-28] MEDS: ASPIRIN (ENTERIC COATED) 81 MG TAB PO SCH (21:58)
[2020-03-28] MEDS: ENOXAPARIN SODIUM 40 MG/0.4 ML SYG SUBCU SCH (21:58)
[2020-03-29] MEDS: PANTOPRAZOLE SODIUM IV 40 MG VIAL IV SCH (06:26)
--- NOTE | 2020-03-29 07:09 | RAD ---
PROCEDURE:XR CHEST 1 VIEW HISTORY:covid COMPARISON: March 26, 2020 FINDINGS: The heart appears unremarkable. There are stable patchy infiltrates. There are no new infiltrates. There is no evidence for effusion or pneumothorax. The osseous structures and soft tissues are normal. IMPRESSION: Stable chest x-ray. Electronically signed by: Pb Samuels MD 03/29/2020 7:08 AM CDT
[2020-03-29] MEDS ORDERED: DEXAMETHASONE INJ 10 MG/ML VIAL ONE (07:38)
[2020-03-29] MEDS ORDERED: guaiFENesin ER TAB 600 MG TAB ONE (07:39)
[2020-03-29] MEDS ORDERED: ATORVASTATIN 20 MG TAB PO ONE (07:39)
[2020-03-29] MEDS ORDERED: amLODIPine BESYLATE 5 MG TAB ONE (07:41)
[2020-03-29] MEDS ORDERED: AZITHROMYCIN IV 500 MG VIAL IVPB ONE ×2 (07:41→12:21)
[2020-03-29] MEDS ORDERED: SODIUM CHLORIDE 0.9% 250ML 250 ML ONE (07:42)
[2020-03-29] MEDS: REMDESIVIR 200 MG in SODIUM CHLORIDE 0.9% 250ML 250 ML IVPB SCH ×2 (08:11→11:57)
[2020-03-29] MEDS: ALBUTEROL INHALER 64 PUFF/8GM INH SCH ×4 (08:20→20:20)
[2020-03-29] MEDS: cefTRIAXone SODIUM 1 GM in SODIUM CHL 0.9% 50ML MIN-BAG+ 50 ML IVPB SCH (08:21)
[2020-03-29] MEDS: amLODIPine BESYLATE 5 MG TAB PO SCH (08:24)
[2020-03-29] MEDS: guaiFENesin ER TAB 600 MG TAB PO SCH ×2 (08:24→20:53)
[2020-03-29] MEDS: NON-FORMULARY MEDICATION 1 EA MIS (Atorvastatin Calcium [Atorvastatin Calcium] 40 MG) PO SCH (08:28)
[2020-03-29] MEDS: HYDROCHLO PO SCH (08:28)
[2020-03-29] MEDS: DEXAMETHASONE INJ 10 MG/ML VIAL IV SCH (08:28)
[2020-03-29] MEDS: LOSARTAN POTASSIUM PO SCH (08:28)
[2020-03-29] MEDS: INSULIN LISPRO 100 UNITS/ML PEN SUBCU SCH ×3 (08:42→20:54)
[2020-03-29] MEDS ORDERED: SODIUM CHLORIDE 0.9% (FLUSH) 10 ML SYG ONE (09:55)
[2020-03-29] MEDS: SODIUM CHLORIDE 0.9% (FLUSH) 10 ML SYG IV SCH ×2 (10:22→20:58)
[2020-03-29] MEDS: REMDESIVIR 100 MG in SODIUM CHLORIDE 0.9% 250ML 250 ML IVPB SCH (10:22)
[2020-03-29] MEDS: AZITHROMYCIN IV 500 MG in SODIUM CHLORIDE 0.9% 250ML 250 ML IVPB SCH (12:39)
--- NOTE | 2020-03-29 14:03 | PN ---
SUPERVISING PHYSICIAN: Baldo Abraham MD DATE: 03/29/20 SUBJECTIVE: The patient does not really feel overly short of breath, but is a little bit in distress secondary to having to get another IV site. He does not have any respiratory complaints at this time. OBJECTIVE: VITAL SIGNS: Blood pressure 150/76, heart rate 74, respiratory rate 18, temperature 97.6, oxygen saturation 99% on 2 liters via nasal cannula. GENERAL: Mr. Ham is a 69-year-old patient who is in no active distress currently. NEUROLOGIC: The patient is alert. LUNGS: Diminished in the bases, but clear to auscultation bilaterally. CARDIOVASCULAR: Regular rate and rhythm. Normal S1, S2. ABDOMEN: Soft. Positive bowel sounds. GENITOURINARY: Deferred. EXTREMITIES: Lower extremities with no edema. LABORATORY: White count 11.0, hemoglobin 9.8, hematocrit 29.4, platelet count 360. Fibrinogen 544, D-dimer 223. CRP 5.1. Sodium 139, potassium 4.2, chloride 106, CO2 25, BUN 33, creatinine 0.97, glucose 156, calcium 9.7. RADIOLOGY: Chest x-ray still with bilateral patchy infiltrates, but no increase in the opacities. ASSESSMENT: 1. COVID-19 pneumonitis. 2. Streptococcal pharyngitis. 3. Asthma with acute exacerbation. 4. Hypertension. 5. Obstructive sleep apnea. 6. Obesity. 7. Diabetes mellitus, type 2. PLAN: Clinically, the patient seems to be improving regarding COVID pneumonitis. O2 saturations are good on 2 liters, so we will reduce him to 1 liter and see how he does. Additionally, we will continue the Remdesivir for a total of 5 days to complete the course. I anticipate that once this course is complete, if he continues to improved, he will be discharged at that time. We will continue his dexamethasone, azithromycin, ceftriaxone and Lovenox at this time. #[id number] [facility]
[2020-03-29] MEDS: BIFIDOBACTERIUM INFANTIS 4 MG CAP PO SCH ×2 (19:10→20:53)
[2020-03-29] MEDS: ASPIRIN (ENTERIC COATED) 81 MG TAB PO SCH (20:53)
[2020-03-29] MEDS: ENOXAPARIN SODIUM 40 MG/0.4 ML SYG SUBCU SCH (20:53)
[2020-03-30] MEDS: PANTOPRAZOLE SODIUM TAB 40 MG PO SCH (05:53)
[2020-03-30] MEDS: IV SET AND CAP CHANGE INJ INJ SCH (07:04)
[2020-03-30] MEDS: ALBUTEROL INHALER 64 PUFF/8GM INH SCH ×3 (08:00→19:50)
[2020-03-30] MEDS: INSULIN LISPRO 100 UNITS/ML PEN SUBCU SCH ×4 (08:04→20:35)
[2020-03-30] MEDS ORDERED: SODIUM CHLORIDE 0.9% 250ML 250 ML ONE (08:21)
[2020-03-30] MEDS: HYDROCHLO PO SCH (08:59)
[2020-03-30] MEDS: amLODIPine BESYLATE 5 MG TAB PO SCH (08:59)
[2020-03-30] MEDS: LOSARTAN POTASSIUM PO SCH (08:59)
[2020-03-30] MEDS: guaiFENesin ER TAB 600 MG TAB PO SCH ×2 (08:59→20:35)
[2020-03-30] MEDS: BIFIDOBACTERIUM INFANTIS 4 MG CAP PO SCH ×2 (08:59→20:35)
[2020-03-30] MEDS: DEXAMETHASONE INJ 10 MG/ML VIAL IV SCH (08:59)
[2020-03-30] MEDS: SODIUM CHLORIDE 0.9% (FLUSH) 10 ML SYG IV SCH ×2 (09:00→20:35)
[2020-03-30] MEDS: cefTRIAXone SODIUM 1 GM in SODIUM CHL 0.9% 50ML MIN-BAG+ 50 ML IVPB SCH (09:00)
[2020-03-30] MEDS: REMDESIVIR 100 MG in SODIUM CHLORIDE 0.9% 250ML 250 ML IVPB SCH (09:56)
--- NOTE | 2020-03-30 11:18 | PN ---
SUPERVISING PHYSICIAN: Baldo Abraham MD DATE: 03/30/20 SUBJECTIVE: The patient is not complaining of any shortness of breath. He has been weaned off his oxygen and doing fairly well. OBJECTIVE: VITAL SIGNS: Blood pressure 161/70, heart rate 74, respiratory rate 18, temperature 97.4, oxygen saturation 97% on room air. GENERAL: Mr. Ham is a 69-year-old male patient in no active distress. NEUROLOGIC: The patient is alert. LUNGS: Diminished in the bases, but otherwise clear to auscultation bilaterally. CARDIOVASCULAR: Regular rate and rhythm. Normal S1, S2. ABDOMEN: Soft. Positive bowel sounds. GENITOURINARY: Deferred. EXTREMITIES: Lower extremities with no edema. LABORATORY: Normal white count at 9.4, hemoglobin 9.8, hematocrit 28.8, platelet count 386. Fibrinogen 483, D-dimer 280. Chemistry shows BUN 29, creatinine 0.80. Glucose 116. CRP 2.4, which is down from 5.1. ASSESSMENT: 1. COVID-19 pneumonitis. 2. Streptococcal pharyngitis. 3. Asthma with acute exacerbation. 4. Hypertension. 5. Obstructive sleep apnea. 6. Obesity. 7. Diabetes mellitus, type 2. PLAN: The patient continues to stepwise improve and has been weaned off oxygen. We will continue the Remdesivir and his last dose will be tomorrow. After that dose, we will evaluate the patient and ensure he can be discharged at that time. We will continue the dexamethasone, azithromycin, ceftriaxone and Lovenox at this time. [facility][id number] [facility]
[2020-03-30] MEDS: AZITHROMYCIN IV 500 MG in SODIUM CHLORIDE 0.9% 250ML 250 ML IVPB SCH (12:03)
[2020-03-30] MEDS ORDERED: ATORVASTATIN 20 MG TAB PO ONE (19:29)
[2020-03-30] MEDS: ENOXAPARIN SODIUM 40 MG/0.4 ML SYG SUBCU SCH (20:34)
[2020-03-30] MEDS: ASPIRIN (ENTERIC COATED) 81 MG TAB PO SCH (20:35)
[2020-03-30] MEDS ORDERED: ATORVASTATIN 20 MG TAB PO SCH (21:00)
[2020-03-31] MEDS: PANTOPRAZOLE SODIUM TAB 40 MG PO SCH (05:34)
[2020-03-31] MEDS: BIFIDOBACTERIUM INFANTIS 4 MG CAP PO SCH (08:34)
[2020-03-31] MEDS: INSULIN LISPRO 100 UNITS/ML PEN SUBCU SCH (08:34)
[2020-03-31] MEDS: DEXAMETHASONE INJ 10 MG/ML VIAL IV SCH (08:34)
[2020-03-31] MEDS: HYDROCHLO PO SCH (08:35)
[2020-03-31] MEDS: cefTRIAXone SODIUM 1 GM in SODIUM CHL 0.9% 50ML MIN-BAG+ 50 ML IVPB SCH (08:35)
[2020-03-31] MEDS: amLODIPine BESYLATE 5 MG TAB PO SCH (08:35)
[2020-03-31] MEDS: SODIUM CHLORIDE 0.9% (FLUSH) 10 ML SYG IV SCH (08:35)
[2020-03-31] MEDS: LOSARTAN POTASSIUM PO SCH (08:35)
[2020-03-31] MEDS: guaiFENesin ER TAB 600 MG TAB PO SCH (08:35)
[2020-03-31] MEDS: REMDESIVIR 100 MG in SODIUM CHLORIDE 0.9% 250ML 250 ML IVPB SCH (09:00)
[2020-03-31] MEDS: ALBUTEROL INHALER 64 PUFF/8GM INH SCH (09:06)
[2020-03-31 09:07] VITALS: BP 131/67; TEMP 98.7; O2SAT 96
--- NOTE | 2020-03-31 11:22 | DS ---
SUPERVISING PHYSICIAN: aBldo Abraham MD ADMISSION DIAGNOSIS: 1. COVID-19 pneumonitis. 2. Streptococcal pharyngitis. 3. Asthma with acute exacerbation. 4. Hypertension. 5. Obstructive sleep apnea. 6. Obesity. 7. Diabetes mellitus, type 2. DISCHARGE DIAGNOSIS: 1. COVID-19 pneumonitis. 2. Streptococcal pharyngitis. 3. Asthma with acute exacerbation. 4. Hypertension. 5. Obstructive sleep apnea. 6. Obesity. 7. Diabetes mellitus, type 2. HOSPITAL COURSE: This is a 69-year-old male patient who came to the Emergency Room with shortness of breath. He had been ill for approximately two weeks, but over the 24 hours prior to admission, his dyspnea got a lot worse. Fever went up to 102. He was diagnosed with COVID-19 on 03/16/20. He came to the ER and was on 2 liters of oxygen with saturation 94% and tachypneic. He was also positive for group A strep. Chest x-ray was consistent with pneumonitis presentation with patchy infiltrates bilaterally. He was admitted for COVID-19 pneumonitis and placed on IV Decadron, Remdesivir, azithromycin and Rocephin. Over his stay, he did okay. He was requiring oxygen and was subsequently weaned off. On day of his discharge today, the patient has been off of oxygen for approximately 36 hours. He is not tachypneic and he is afebrile. Therefore, the patient will be discharged today in stable condition. Therefore, I have written prescriptions for albuterol inhaler, Ceftin and guaifenesin. The patient will self-quarantine post discharge and will followup with his primary care physician. Activity as tolerated, diet as tolerated. #[id number] [facility]
== END 2020-03-31 11:34 | disposition home or self-care (01) | DRG 177 ==
LOC: ER 22:11 → OBSVTOIN 03-27 01:33 → MS 03-27 01:33
PROVIDERS: ADMIT Nurse Practitioner Acute Care; ATTEND Nurse Practitioner
DX: U07.1 COVID-19 (principal); J12.89 Other viral pneumonia; J44.1 Chronic obstructive pulmonary disease with (acute) exacerbation; J02.0 Streptococcal pharyngitis; I10 Essential (primary) hypertension; G47.33 Obstructive sleep apnea (adult) (pediatric); E66.9 Obesity, unspecified; E11.9 Type 2 diabetes mellitus without complications; E78.5 Hyperlipidemia, unspecified; Z79.899 Other long term (current) drug therapy; Z68.39 Body mass index [BMI] 39.0-39.9, adult